=== PATIENT | female | born 1970 | race Caucasian/White ===

== ENCOUNTER 2024-08-26 05:54 | Inpatient (IN) | payer BC ==
[~2024-08-26] VITALS: Ht 170.2 cm; Wt 79.5 kg
[2024-08-26] VITALS (9 sets, daily range): BP systolic 100–137; BP diastolic 62–91; PULSE 76–92; RESP 16–18; TEMP 98–99.2; O2SAT 90–93
[2024-08-26] MEDS: PREDNISONE 20 MG TAB PO ONE (06:46)
[2024-08-26] MEDS: ALBUTEROL/IPRATROPIUM 3 ML NEB NEB ONE (06:48)
[2024-08-26] MEDS ORDERED: PREDNISONE20 MG PO (06:49)
[2024-08-26] MEDS ORDERED: ALBUTEROL 90 MCG/ACT INHALER INH PRN (10:15)
[2024-08-26] MEDS: ASPIRIN 81 MG CHEW TAB PO ONE (12:30)
[2024-08-26] MEDS: SODIUM CHLORIDE 0.9% 1000ML 1,000 ML IV SCH (12:31)
[2024-08-26] MEDS ORDERED: PREGABALIN100 MG PO (12:45)
[2024-08-26] MEDS ORDERED: DOXEPIN HCL75 MG PO (12:45)
[2024-08-26] MEDS ORDERED: LAMOTRIGINE200 MG PO (12:45)
[2024-08-26] MEDS ORDERED: MOLNUPIRAVIR (200 MG PO (12:45)
[2024-08-26] MEDS ORDERED: DULOXETINE HCL60 MG PO (12:45)
[2024-08-26] MEDS ORDERED: ZOLPIDEM TART12.5 MG PO (12:45)
[2024-08-26] MEDS ORDERED: QUETIAPINE FUM400 MG PO (12:45)
[2024-08-26] MEDS ORDERED: AIRSUPRA 90-810.7 GM INH (12:45)
[2024-08-26] MEDS ORDERED: NIRMATRELVIR PO SCH (16:00)
[2024-08-26] MEDS ORDERED: RITONAVIR PO SCH (16:00)
[2024-08-26] MEDS ORDERED: ONDANSETRON HCL INJ 2MG/ML 2ML 2 MG/ML VIAL IV PRN (16:30)
[2024-08-26 16:52] LABS: CREATINE KINASE 25 IU/L (29-168)
[2024-08-26 16:59] LABS: TROPONIN I < 0.001 ng/mL (0-0.300)
[2024-08-26] MEDS ORDERED: METOCLOPRAMIDE HCL 10 MG TAB PO SCH (17:35)
[2024-08-26] MEDS: REMDESIVIR 100MG 200 MG in SODIUM CHLORIDE 0.9% 100 ML IV ONE (19:15)
[2024-08-26] MEDS: FAMOTIDINE 20 MG TAB PO SCH (19:16)
[2024-08-26] MEDS: METOCLOPRAMIDE HCL 10 MG TAB PO SCH (19:16)
[2024-08-26] MEDS: PREGABALIN 50 MG CAP PO SCH (21:00)
[2024-08-26] MEDS: ALBUTEROL/IPRATROPIUM 3 ML NEB NEB SCH (21:05)
[2024-08-27] VITALS (10 sets, daily range): BP systolic 90–134; BP diastolic 54–87; PULSE 80–117; RESP 16–18; TEMP 97.7–102; O2SAT 85–97
[2024-08-27 05:56] LABS: BASOPHILS % 0.2 % (0.0-1.0); EOSINOPHILS % 0.5 % (0.0-6.0); HEMATOCRIT 34.9 % (34.2-44.1); HEMOGLOBIN 10.9 g/dL (12.0-16.0); LYMPHOCYTES # (AUTO) 0.6 (1.0-3.2); LYMPHOCYTES % 14.1 % (18.0-39.1); MEAN CORPUSCULAR HEMOGLOBIN 28.7 pg (28-32); MEAN CORPUSCULAR HGB CONC 31.2 g/dL (31-35); MEAN CORPUSCULAR VOLUME 91.8 fL (81-99); MONOCYTES # (AUTO) 0.3 (0.2-0.8); NEUTROPHILS # (AUTO) 3.3 (2.1-6.9); NEUTROPHILS % 78.7 % (38.7-80.0); PLATELET COUNT 166 x10e3/uL (140-360); RED CELL DISTRIBUTION WIDTH 14.8 % (11.7-14.4); WHITE BLOOD COUNT 4.18 x10e3/uL (4.8-10.8)
[2024-08-27 06:20] LABS: ALBUMIN/GLOBULIN RATIO 0.9 (0.8-2.0); ANION GAP 17.7 mmol/L (8-16); BILIRUBIN,TOTAL 0.3 mg/dL (0.2-1.2); CALCIUM 8.9 mg/dL (8.4-10.2); CREATININE, SERUM 1.06 mg/dL (0.57-1.11); POTASSIUM 3.7 mmol/L (3.5-5.1); TOTAL PROTEIN 6.4 g/dL (6.5-8.1)
[2024-08-27 06:31] LABS: CREATINE KINASE 24 IU/L (29-168)
[2024-08-27 06:39] LABS: THYROID STIMULATING HORMONE 1.444 uIU/mL (0.350-4.940)
[2024-08-27 06:44] LABS: TROPONIN I < 0.001 ng/mL (0-0.300)
[2024-08-27] MEDS: DULOXETINE HCL 30 MG DELAYED RELEASE PO SCH (10:45)
[2024-08-27] MEDS: DOXEPIN HCL 25 MG CAP PO SCH (10:45)
[2024-08-27] MEDS: QUETIAPINE FUMARATE 100 MG TAB PO SCH (10:45)
[2024-08-27] MEDS: LAMOTRIGINE 100 MG TAB PO SCH (10:45)
[2024-08-27] MEDS: DEXAMETHASONE 4 MG TAB PO SCH (10:46)
[2024-08-27] MEDS: REMDESIVIR 100MG 100 MG in SODIUM CHLORIDE 0.9% 100 ML IV SCH (13:56)
[2024-08-27 14:03] LABS: TROPONIN I 0.006 ng/mL (0-0.300)
[2024-08-27] MEDS ORDERED: IOPAMIDOL 370 MG/ML 100 ML INFUS..BTL INJ ONE (16:36)
[2024-08-27] MEDS: ENOXAPARIN 30 MG/0.3 ML SYR SC SCH (17:02)
[2024-08-27] MEDS: ZOLPIDEM TARTRATE 10 MG TAB PO SCH (22:38)
[2024-08-28] VITALS (9 sets, daily range): BP systolic 95–137; BP diastolic 63–94; PULSE 62–81; RESP 16–19; TEMP 97.9–99.3; O2SAT 91–95
[2024-08-28 05:45] LABS: HEMATOCRIT 30.8 % (34.2-44.1); HEMOGLOBIN 10.2 g/dL (12.0-16.0); LYMPHOCYTES # (AUTO) 0.7 (1.0-3.2); LYMPHOCYTES % 24.7 % (18.0-39.1); MEAN CORPUSCULAR HEMOGLOBIN 28.7 pg (28-32); MEAN CORPUSCULAR HGB CONC 33.1 g/dL (31-35); MEAN CORPUSCULAR VOLUME 86.8 fL (81-99); MONOCYTES # (AUTO) 0.5 (0.2-0.8); MONOCYTES % 17.2 % (4.4-11.3); NEUTROPHILS # (AUTO) 1.5 (2.1-6.9); NEUTROPHILS % 56.6 % (38.7-80.0); PLATELET COUNT 190 x10e3/uL (140-360); RED BLOOD COUNT 3.55 x10e6/uL (3.6-5.1); RED CELL DISTRIBUTION WIDTH 14.7 % (11.7-14.4); WHITE BLOOD COUNT 2.67 x10e3/uL (4.8-10.8)
[2024-08-28 06:07] LABS: ANION GAP 13.9 mmol/L (8-16); CALCIUM 8.6 mg/dL (8.4-10.2); CREATININE, SERUM 0.88 mg/dL (0.57-1.11); POTASSIUM 3.9 mmol/L (3.5-5.1)
[2024-08-28 09:17] LABS: HIV 1&2 AB SCREEN NON-REACTIVE (NONREACTIVE); HIV- 1 P24 AG SCREEN NON-REACTIVE (NONREACTIVE)
[2024-08-28] MEDS: ASCORBIC ACID 500 MG TAB PO SCH (18:11)
[2024-08-28] MEDS: ZINC SULFATE 220 MG CAP PO SCH (18:14)
[2024-08-29 02:07] LABS: HEMATOCRIT 31.8 % (34.2-44.1); HEMOGLOBIN 10.2 g/dL (12.0-16.0); LYMPHOCYTES # (AUTO) 1.1 (1.0-3.2); LYMPHOCYTES % 40.3 % (18.0-39.1); MEAN CORPUSCULAR HEMOGLOBIN 28.1 pg (28-32); MEAN CORPUSCULAR HGB CONC 32.1 g/dL (31-35); MEAN CORPUSCULAR VOLUME 87.6 fL (81-99); MONOCYTES # (AUTO) 0.5 (0.2-0.8); MONOCYTES % 17.2 % (4.4-11.3); NEUTROPHILS # (AUTO) 1.1 (2.1-6.9); NEUTROPHILS % 40.3 % (38.7-80.0); PLATELET COUNT 216 x10e3/uL (140-360); RED BLOOD COUNT 3.63 x10e6/uL (3.6-5.1); RED CELL DISTRIBUTION WIDTH 14.8 % (11.7-14.4); WHITE BLOOD COUNT 2.68 x10e3/uL (4.8-10.8)
[2024-08-29 02:22] LABS: ALBUMIN 2.7 g/dL (3.5-5.0); BILIRUBIN,DIRECT 0.1 mg/dL (0.0-0.5); BILIRUBIN,TOTAL 0.2 mg/dL (0.2-1.2); TOTAL PROTEIN 5.8 g/dL (6.5-8.1)
[2024-08-29 02:43] LABS: FERRITIN 324.02 ng/mL (4.63-204.00)
[2024-08-29 02:56] LABS: FOLATE 10.4 ng/mL (7.0-15.4)
[2024-08-29 05:39] LABS: ALBUMIN 2.7 g/dL (3.5-5.0); ALBUMIN/GLOBULIN RATIO 0.8 (0.8-2.0); BILIRUBIN,TOTAL 0.2 mg/dL (0.2-1.2); CALCIUM 8.8 mg/dL (8.4-10.2); CREATININE, SERUM 0.89 mg/dL (0.57-1.11); TOTAL PROTEIN 5.9 g/dL (6.5-8.1)
[2024-08-29] MEDS: PANTOPRAZOLE SODIUM 20 MG TABLET.DR PO SCH (08:23)
[2024-08-29 09:15] VITALS: BP 90/63; PULSE 80; RESP 18; TEMP 98.5; O2SAT 92
[2024-08-29 09:57] VITALS: BP 90/63; PULSE 80; RESP 18; TEMP 98.5; O2SAT 92
[2024-08-29] MEDS ORDERED: ZINC SULFATE50 MG PO (13:22)
[2024-08-29] MEDS ORDERED: ASCORBIC ACID500 MG PO (13:22)
[2024-08-29] MEDS ORDERED: PANTOPRAZOLE SO20 MG PO (13:22)
[2024-08-29] MEDS ORDERED: METOCLOPRAMIDE10 MG PO (13:22)
[2024-08-29] MEDS ORDERED: CIPRO500 MG PO (13:22)
== END 2024-08-29 14:20 | disposition home or self-care (01) | DRG 177 ==
LOC: FSED 06:34 → MED/SURG2 10:42
PROVIDERS: ADMIT Internal Medicine; ATTEND Internal Medicine
PROC: XW033E5 Introduction of Remdesivir Anti-infective into Peripheral Vein, Percutaneous Approach, New Technology Group 5 (ICD-10-PCS; principal; 2024-08-26)
PROC: 02HV33Z Insertion of Infusion Device into Superior Vena Cava, Percutaneous Approach (ICD-10-PCS; 2024-08-27)
DX: U07.1 COVID-19 (principal); J12.82 Pneumonia due to coronavirus disease 2019; J96.01 Acute respiratory failure with hypoxia; J15.9 Unspecified bacterial pneumonia; K21.9 Gastro-esophageal reflux disease without esophagitis; D64.9 Anemia, unspecified; J45.909 Unspecified asthma, uncomplicated; F31.9 Bipolar disorder, unspecified; Z79.52 Long term (current) use of systemic steroids
CPT/HCPCS: 0223U; 36415; 71046; 71260; 80048; 80053; 80076; 82550; 82607; 82728; 82746; 82977; 83540; 84443; 84466; 84484; 85025; 85045; 87040; 87390; 87400; 94640; 94799; 99283; G0433; G0435; J0248; J0696; J1650; J2405; J7030; J7050; J7512; Q9967

== ENCOUNTER 2025-03-10 14:03 | Inpatient (IN) | payer BC ==
[~2025-03-10] VITALS: Ht 170.2 cm; Wt 79.4 kg
[2025-03-10] VITALS (11 sets, daily range): BP systolic 59–75; BP diastolic 42–57; PULSE 101–106; RESP 15–24; TEMP 99–99.5; O2SAT 81–100
[~2025-03-10 14:03] MED LIST: AIRSUPRA 90-810.7 GM INH; ASCORBIC ACID500 MG PO; CIPRO500 MG PO; DOXEPIN HCL75 MG PO; DULOXETINE HCL60 MG PO; LAMOTRIGINE200 MG PO; METOCLOPRAMIDE10 MG PO; MOLNUPIRAVIR (200 MG PO; PANTOPRAZOLE SO20 MG PO; PREDNISONE20 MG PO; PREGABALIN100 MG PO; QUETIAPINE FUM400 MG PO; ZINC SULFATE50 MG PO; ZOLPIDEM TART12.5 MG PO
[2025-03-10 14:58] LABS: BASOPHILS % 0.3 % (0.0-1.0); EOSINOPHILS % 0.0 % (0.0-6.0); LYMPHOCYTES % 8.6 % (18.0-39.1); MONOCYTES % 14.1 % (4.4-11.3); NEUTROPHILS % 76.7 % (38.7-80.0); RED CELL DISTRIBUTION WIDTH 13.8 % (11.7-14.4)
[2025-03-10 15:14] LABS: INR 1.02
[2025-03-10 15:23] LABS: EST GLOMERULAR FILTRATION RATE 38 ML/MIN (>=60)
[2025-03-10] MEDS ORDERED: SODIUM CHLORIDE 0.9% 1000ML 1,000 ML ONE (15:35)
[2025-03-10] MEDS ORDERED: SODIUM CHLORIDE 0.9% 250ML 250 ML ONE (15:35)
[2025-03-10] MEDS ORDERED: SODIUM CHLORIDE 0.9% 100 ML ONE (15:35)
[2025-03-10] MEDS: ACETAMINOPHEN 325 MG TAB PO ONE (15:40)
[2025-03-10] MEDS: SODIUM CHLORIDE 0.9% 1000ML 2,380 ML IV SCH (15:42)
[2025-03-10 17:20] LABS: AMPHETAMINES SCREEN,URINE NEGATIVE (NEGATIVE); CANNABINOIDS SCREEN,URINE NEGATIVE (NEGATIVE); COCAINE SCREEN,URINE NEGATIVE (NEGATIVE); LEUKOCYTE ESTERASE ,URINE NEGATIVE (NEGATIVE); METHADONE SCREEN, URINE NEGATIVE (NEGATIVE); OPIATES SCREEN,URINE NEGATIVE (NEGATIVE); PROTEIN,URINE DIPSTICK NEGATIVE (NEGATIVE); URINE UROBILINOGEN 0.2 mg/dL (0.2 - 1)
[2025-03-10 17:31] LABS: EPITHELIAL CELLS,URINE FEW /LPF; WBC,URINE (MAN) 0-5 /HPF (0-5)
[2025-03-10] MEDS: Vancomycin IV 1 GM in SODIUM CHLORIDE 0.9% 250ML 250 ML IV ONE (17:56)
[2025-03-10] MEDS: IBUPROFEN 600 MG TAB PO STA (17:57)
[2025-03-10] MEDS: SODIUM CHLORIDE 0.9% 1000ML 1,000 ML IV SCH ×2 (20:02→22:38)
[2025-03-10] MEDS: ACETAMINOPHEN 325 MG TAB PO PRN (20:29)
[2025-03-10] MEDS: SODIUM CHLORIDE 0.9% 1000ML 800 ML IV ONE (21:45)
[2025-03-10] MEDS: ONDANSETRON HCL INJ 2MG/ML 2ML 2 MG/ML VIAL IV PRN (22:06)
[2025-03-10] MEDS: METRONIDAZOLE 500MG/NS 100ML 100 ML IV SCH (22:07)
[2025-03-10 22:13] LABS: CORONAVIRUS COVID-19 AG NEGATIVE (NEGATIVE)
[2025-03-10 22:36] LABS: EST GLOMERULAR FILTRATION RATE 46.0 ML/MIN (>=60)
[2025-03-11] VITALS (89 sets, daily range): BP systolic 58–137; BP diastolic 38–112; PULSE 103–125; RESP 11–35; TEMP 98.6–99.7; O2SAT 64–100
[2025-03-11] MEDS: NOREPINEPHRINE 8 MG/D5W 250 ML 250 ML IV SCH (00:27)
[2025-03-11] MEDS: SODIUM CHLORIDE 0.9% 1000ML 800 ML IV ONE (00:27)
[2025-03-11] MEDS ORDERED: MELATONIN 3 MG TAB PO PRN (00:45)
[2025-03-11] MEDS ORDERED: HYDRALAZINE HCL 20 MG/ML VIAL IV PRN (00:45)
[2025-03-11] MEDS ORDERED: GUAIFENESIN/DEXTROMETHORPHAN LIQD 5 ML UDC PO PRN (00:45)
[2025-03-11] MEDS ORDERED: ACETAMINOPHEN 325 MG TAB PO PRN (00:45)
[2025-03-11] MEDS ORDERED: ALBUTEROL SULF 0.083% NEB SOLN 3 ML NEB NEB PRN (00:45)
[2025-03-11] MEDS ORDERED: MAGNESIUM/ALUMINUM/SIMETHICONE 30 ML UDC PO PRN (00:45)
[2025-03-11] MEDS ORDERED: POLYETHYLENE GLYCOL 3350 17 GM PACK PO PRN (00:45)
[2025-03-11 06:43] LABS: BASOPHILS % 0.2 % (0.0-1.0); EOSINOPHILS % 1.8 % (0.0-6.0); LYMPHOCYTES % 11.4 % (18.0-39.1); MONOCYTES % 10.2 % (4.4-11.3); NEUTROPHILS % 76.0 % (38.7-80.0); RED CELL DISTRIBUTION WIDTH 14.0 % (11.7-14.4)
[2025-03-11 07:08] LABS: EST GLOMERULAR FILTRATION RATE 50.0 ML/MIN (>=60)
[2025-03-11] MEDS: POTASSIUM CHLORIDE 20MEQ/100ML 100 ML IV SCH (08:14)
[2025-03-11] MEDS: DOCUSATE SODIUM 100 MG CAP PO SCH (08:14)
[2025-03-11] MEDS: SODIUM BICARBONATE 8.4% VIAL 50 ML in SODIUM CHLORIDE 0.45% 1,000 ML IV SCH (08:14)
[2025-03-11] MEDS: MULTIVITAMINS/MINERALS TAB PO SCH (08:14)
[2025-03-11] MEDS: FOLIC ACID 1 MG TAB PO SCH (08:14)
[2025-03-11] MEDS: MUPIROCIN 2% OINT 22 GM TUBE TOP SCH (08:14)
[2025-03-11] MEDS: THIAMINE HCL 100 MG TAB PO SCH (08:14)
[2025-03-11 08:15] LABS: PHOSPHORUS 3.2 MG/DL (2.3-4.7)
[2025-03-11] MEDS: Vancomycin IV 1 GM in SODIUM CHLORIDE 0.9% 250ML 250 ML IV SCH (09:36)
[2025-03-11 11:25] LABS: EOSINOPHILS % (MANUAL) 3 % (0-7); LYMPHOCYTES % (MANUAL) 16 % (19-48); MONOCYTES % (MANUAL) 8 % (3.4-9.0); NEUTROPHILS % (MANUAL) 73 % (40-74); PLATELET ESTIMATE ADEQUATE; PLATELET MORPHOLOGY COMMENT NORMAL; RBC MORPHOLOGY COMMENT NORMAL
[2025-03-11] MEDS: ENOXAPARIN SOD INJ 40 MG/0.4 ML SYR SC SCH (17:12)
[2025-03-12] VITALS (33 sets, daily range): BP systolic 93–119; BP diastolic 64–89; PULSE 90–118; RESP 6–27; TEMP 97.9–99; O2SAT 94–100
[2025-03-12 06:10] LABS: BASOPHILS % 0.8 % (0.0-1.0); EOSINOPHILS % 3.0 % (0.0-6.0); LYMPHOCYTES % 10.7 % (18.0-39.1); MONOCYTES % 6.1 % (4.4-11.3); NEUTROPHILS % 74.4 % (38.7-80.0); RED CELL DISTRIBUTION WIDTH 14.3 % (11.7-14.4)
[2025-03-12 06:49] LABS: % IRON SATURATION 8 % (15-50); EST GLOMERULAR FILTRATION RATE 90.0 ML/MIN (>=60)
[2025-03-12 07:26] LABS: BAND NEUTROPHILS % (MANUAL) 1 %; BASOPHILS % (MANUAL) 1 % (0-1.5); EOSINOPHILS % (MANUAL) 2 % (0-7); LYMPHOCYTES % (MANUAL) 13 % (19-48); MONOCYTES % (MANUAL) 4 % (3.4-9.0); NEUTROPHILS % (MANUAL) 79 % (40-74)
[2025-03-12 07:28] LABS: PLATELET ESTIMATE ADEQUATE; PLATELET MORPHOLOGY COMMENT NORMAL
[2025-03-12] MEDS: PREGABALIN 50 MG CAP PO SCH (08:00)
[2025-03-12] MEDS: LAMOTRIGINE 100 MG TAB PO SCH (08:22)
[2025-03-12] MEDS: DULOXETINE HCL 30 MG DELAYED RELEASE PO SCH (08:22)
[2025-03-12] MEDS: QUETIAPINE FUMARATE 100 MG TAB PO SCH (08:23)
[2025-03-12] MEDS: DOXEPIN HCL 25 MG CAP PO SCH (08:27)
[2025-03-12] MEDS ORDERED: DULOXETINE HCL 30 MG DELAYED RELEASE PO SCH (09:00)
[2025-03-12] MEDS ORDERED: QUETIAPINE FUMARATE 100 MG TAB PO SCH (09:00)
[2025-03-12] MEDS ORDERED: PREGABALIN 50 MG CAP PO SCH (09:00)
[2025-03-12] MEDS ORDERED: LAMOTRIGINE 100 MG TAB PO SCH (09:00)
[2025-03-12] MEDS ORDERED: DOXEPIN HCL 25 MG CAP PO SCH (09:00)
[2025-03-13 04:00] VITALS: BP 113/85; PULSE 102; RESP 18; TEMP 97.9; O2SAT 100
[2025-03-13 04:05] VITALS: BP 123/87; PULSE 82; RESP 18; TEMP 98.8; O2SAT 100
[2025-03-13 05:00] LABS: BASOPHILS % 0.5 % (0.0-1.0); EOSINOPHILS % 6.5 % (0.0-6.0); LYMPHOCYTES % 27.9 % (18.0-39.1); MONOCYTES % 5.2 % (4.4-11.3); NEUTROPHILS % 59.6 % (38.7-80.0); RED CELL DISTRIBUTION WIDTH 14.2 % (11.7-14.4)
[2025-03-13 05:23] LABS: EST GLOMERULAR FILTRATION RATE 93.0 ML/MIN (>=60)
[2025-03-13 06:36] VITALS: PULSE 96; RESP 22; O2SAT 99
[2025-03-13 07:45] VITALS: BP 127/86; PULSE 85; RESP 18; TEMP 98.7
[2025-03-13] MEDS: IRON SUCROSE 100 MG in SODIUM CHLORIDE 0.9% 100 ML IV SCH (08:04)
[2025-03-13 09:30] VITALS: BP 127/86; PULSE 85; RESP 18; TEMP 98.7; O2SAT 99
== END 2025-03-13 09:50 | disposition home or self-care (01) | DRG 871 ==
LOC: ER 14:43 → ERHOLD 18:24 → ICU 22:45 → MED/SURG 03-12 19:19
PROVIDERS: ADMIT Family Medicine Adult Medicine; ATTEND Family Medicine Adult Medicine
PROC: 3E0333Z Introduction of Anti-inflammatory into Peripheral Vein, Percutaneous Approach (ICD-10-PCS; principal; 2025-03-10)
PROC: 3E043XZ Introduction of Vasopressor into Central Vein, Percutaneous Approach (ICD-10-PCS; 2025-03-10)
PROC: 02HV33Z Insertion of Infusion Device into Superior Vena Cava, Percutaneous Approach (ICD-10-PCS; 2025-03-11)
DX: A41.9 Sepsis, unspecified organism (principal); I21.A1 Myocardial infarction type 2; K72.00 Acute and subacute hepatic failure without coma; R65.21 Severe sepsis with septic shock; J18.9 Pneumonia, unspecified organism; K55.039 Acute (reversible) ischemia of large intestine, extent unspecified; E87.20 Acidosis, unspecified; G93.40 Encephalopathy, unspecified; N17.9 Acute kidney failure, unspecified; A09 Infectious gastroenteritis and colitis, unspecified; F31.9 Bipolar disorder, unspecified; M79.7 Fibromyalgia; R91.8 Other nonspecific abnormal finding of lung field; J30.9 Allergic rhinitis, unspecified; J45.909 Unspecified asthma, uncomplicated; D50.9 Iron deficiency anemia, unspecified; K21.9 Gastro-esophageal reflux disease without esophagitis; Z79.51 Long term (current) use of inhaled steroids; Z98.84 Bariatric surgery status
CPT/HCPCS: 36415; 70450; 71045; 71260; 74177; 80053; 80202; 80307; 81001; 82140; 82550; 82607; 82746; 83540; 83605; 84100; 84439; 84443; 84466; 84484; 84702; 85025; 85045; 85379; 85610; 85730; 86140; 87040; 87086; 93005; 93306; 93970; 94799; 99284; J1650; J2405; J2470; J2543; J3373; J3411; J3480; J7030; J7050